=== PATIENT | female | born 1990 | race Caucasian/White ===

== ENCOUNTER 2017-09-09 13:09 | Outpatient (CLI) | payer OTHER ==
[2017-09-09] MEDS ORDERED: PRENATAL 19 TA1 EAC1 PO (17:15)
[2017-09-09] MEDS ORDERED: LABETALOL HCL100 MG PO (17:15)
[2017-09-09] MEDS ORDERED: SYNTHROID100 MCG PO (17:16)
== END 2017-09-09 14:30 | disposition home or self-care (01) ==
LOC: NST 13:09
DX: Z34.03 Encounter for supervision of normal first pregnancy, third trimester (principal); Z3A.34 34 weeks gestation of pregnancy; O24.419 Gestational diabetes mellitus in pregnancy, unspecified control

== ENCOUNTER 2017-09-09 16:04 | Inpatient (IN) | payer OTHER ==
[~2017-09-09] VITALS: Ht 154.9 cm; Wt 101.6 kg
[2017-09-09] MEDS ORDERED: LABETALOL HCL100 MG PO (17:15)
[2017-09-09] MEDS ORDERED: PRENATAL 19 TA1 EAC1 PO (17:15)
[2017-09-09] MEDS ORDERED: SYNTHROID100 MCG PO (17:16)
== END 2017-09-11 12:07 | disposition home or self-care (01) | DRG 781 ==
LOC: LDR 16:04
PROC: 4A1HXCZ Monitoring of Products of Conception, Cardiac Rate, External Approach (ICD-10-PCS; principal; 2017-09-09)
DX: O16.3 Unspecified maternal hypertension, third trimester (principal); O24.913 Unspecified diabetes mellitus in pregnancy, third trimester; Z3A.34 34 weeks gestation of pregnancy

== ENCOUNTER 2017-09-14 11:04 | Outpatient (CLI) | payer OTHER ==
[~2017-09-14 11:04] MED LIST: LABETALOL HCL100 MG PO; PRENATAL 19 TA1 EAC1 PO; SYNTHROID100 MCG PO
== END 2017-09-14 13:09 | disposition home or self-care (01) ==
LOC: NST 11:04
DX: O16.3 Unspecified maternal hypertension, third trimester (principal)

== ENCOUNTER 2017-09-16 07:08 | Outpatient (CLI) | payer OTHER | END 2017-09-16 07:56 | disposition home or self-care (01) | LOC: NST 07:08 | DX: Z34.03 Encounter for supervision of normal first pregnancy, third trimester (principal) ==

== ENCOUNTER 2017-09-19 09:50 | Outpatient (CLI) | payer OTHER | END 2017-09-19 10:51 | disposition home or self-care (01) | LOC: NST 09:50 | DX: Z34.83 Encounter for supervision of other normal pregnancy, third trimester (principal) ==

== ENCOUNTER 2017-09-20 14:08 | Inpatient (IN) | payer OTHER ==
[~2017-09-20] VITALS: Ht 154.9 cm; Wt 104.3 kg
== END 2017-09-24 14:39 | DRG 774 ==
LOC: LDR 14:08 → SURG-SUITE 14:08 → OB/GYN 09-23 13:10 → SURG-SUITE 09-24 14:39
PROC: 4A1HXCZ Monitoring of Products of Conception, Cardiac Rate, External Approach (ICD-10-PCS; 2017-09-20)
PROC: 10D07Z6 Extraction of Products of Conception, Vacuum, Via Natural or Artificial Opening (ICD-10-PCS; principal; 2017-09-21)
PROC: 0W8NXZZ Division of Female Perineum, External Approach (ICD-10-PCS; 2017-09-21)
PROC: 4A033R1 Measurement of Arterial Saturation, Peripheral, Percutaneous Approach (ICD-10-PCS; 2017-09-21)
DX: O60.14X0 Preterm labor third trimester with preterm delivery third trimester, not applicable or unspecified (principal); O24.92 Unspecified diabetes mellitus in childbirth; O16.3 Unspecified maternal hypertension, third trimester; Z3A.35 35 weeks gestation of pregnancy; Z37.0 Single live birth